=== PATIENT | male | born 1960 | race Caucasian/White ===

== ENCOUNTER 2021-01-28 18:48 | Emergency (ER) | payer OTHER ==
[~2021-01-28 18:48] MED LIST: K-DUR20 MEQ PO; PHENERGAN25 M1 PO; PRILOSEC20 MG PO; PROTONIX 40MG T40 MG PO; ZOFRAN4 MG PO
== END 2021-01-28 20:58 | disposition home or self-care (01) ==
LOC: FER 18:48
DX: S51.812A Laceration without foreign body of left forearm, initial encounter (principal); F17.210 Nicotine dependence, cigarettes, uncomplicated; Z23 Encounter for immunization; W01.190A Fall on same level from slipping, tripping and stumbling with subsequent striking against furniture, initial encounter; Y92.009 Unspecified place in unspecified non-institutional (private) residence as the place of occurrence of the external cause
CPT/HCPCS: 90471; 90715